=== PATIENT | male | born 1965 | race Caucasian/White ===

== ENCOUNTER 2020-05-09 07:58 | Outpatient (REF) | payer MEDICAID, SELFPAY ==
--- NOTE | 2020-05-09 11:29 | MHC.AU.P13 ---
Adult Audiological Evaluation Date of Visit: 05/09/20 Petroleum Engineering Professor Used: Declined by Patient Reason for Appointment: Audiologic evaluation due to decreased hearing ability, right ear greater than left Does patient feel they have a hearing loss?: Yes If Yes, Which Ear?: Right Ear When Was Hearing Difficulty First Noticed?: 2008 following Cerebral Aneurysm Has hearing been tested previously?: No Hearing Handicap Inventory HHIE SCORE: 16 Based on HHIE score, patient has: Mild to moderate perceived hearing handicap Ear History: Family History of Hearing Loss?: Yes History of Ear Wax Buildup: Left Ear History of occupational noise exposure?: No History: History: No Medical History: Medical History: Headache High Blood Pressure Tobacco Use Vascular Problems Medical History: 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 Also diagnosed with hyperlipidemia and Hemianopsia related to the Aneurysm Otoscopy: Right Ear: Unremarkable Left Ear: Cerumen around canal wall only Tympanometry: Right Ear: Negative Middle Ear Pressure (Type C) Left Ear: Normal Middle Ear System (Type A) Otoacoustic Emissions Right Ear Results: Not performed at today's visit. Left Ear Results: Not performed at today's visit. Hearing Evaluation: Transducer(s) Used: Insert Earphones Bone Conduction Method: Conventional Audiometry Stimuli Used: Pure Tones Right Ear: Description of Hearing: Mild dropping to moderately-severe mixed hearing loss. Conductive components may be related to the significant negative middle ear pressure. Left Ear: Description of Hearing: Normal hearing thresholds at 250-3000 Hz dropping to a moderately-severe high frequency sensorineural hearing loss. Speech Recognition Threshold (SRT): Method Used: Monitored Live Voice Stimuli Used: Spondee Words Right Ear: 25 dB HL Left Ear: 20 dB HL Word Discrimination: Method: Recorded Lists Word Lists Used: NU-6 Right Ear: 84% at 65 dB HL Left Ear: 88% at 60 dB HL Comparison: Compared to the most recent evaluation: N/A Recommendations: Recommendations: Audiological re-evaluation in one year. Trial with amplification is recommended. Medical clearance from a physician is required before fitting. A Hearing Aid Fitting has been scheduled. Recommendations (Other): 1) Advised medical consultation with ENT regarding the significant negative middle ear pressure for the right ear; HOWEVER, CHRISTOPHER DOES NOT WANT TO SEE THE SPECIALIST. Advise discussing with Primary Care Provider trying a nasal spray and/or decongestant to address possible Eustachian Tube Dysfunction. 2) Medical clearance faxed to Supervising Physician for use of binaural hearing aids. 3) A Hearing Aid Fitting appointment has been scheduled for 06/06/2020. Diagnosis: Primary Diagnosis: H90.3 Bilateral Sensorineural Hearing Loss Services Performed: Services Performed: Comprehensive Audiological Evaluation (CPT 04116) Tympanometry (CPT 99986) Signature: Provider: Seb Corley, CCC-A
--- NOTE | 2020-05-09 11:38 | MHC.AU.P13 ---
Hearing Aid Evaluation- Binaural Date of Visit: 05/09/20 Business Analyst Intern Used: Declined by Patient Description of Hearing: Right ear - Mild dropping to moderately-severe mixed loss Left ear - Normal thresholds 250-3000, dropping to moderately-severe high frequency sensorineural hearing loss Summary: Due to decreased hearing difficulty and reduced vision, binaural rechargeable hearing aids are recommended as part of the remediation process Hearing Instrument Selection: Right Ear: Receiving Inspector: Bioaxial Model: Event Farmeo M 70-R Battery Size: Rechargeable Color: [place] P3 Manager Spanish: 2 medium Type of Dome: Vented Left Ear: Receiving Inspector: Phonak Model: Phonak M 70-R Battery Size: Rechargeable Color: [place] P3 Manager Spanish: 2 medium Type of Dome: Open Recommendations: Recommendations: Hearing Aid Fitting scheduled for 06/06/2020 Medical clearance faxed to Supervising Physician Diagnosis Code(s): Primary Diagnosis: H90.3 Bilateral Sensorineural Hearing Loss Services Performed: Hearing Aid Evaluation Signature: Provider: Seb Corley, MICHAEL-A
== END 2020-05-09 07:59 | disposition home or self-care (01) ==
LOC: HO.SH 07:58
PROVIDERS: PCP Nurse Practitioner Primary Care; Referring Provider Nurse Practitioner Primary Care; Visit Provider Nurse Practitioner Primary Care
DX: Z46.1 Encounter for fitting and adjustment of hearing aid (principal); H90.3 Sensorineural hearing loss, bilateral
CPT/HCPCS: 92557; 92567; 92591

== ENCOUNTER 2020-06-06 09:36 | Outpatient (REF) | payer MEDICAID, SELFPAY | END 2020-06-06 09:37 | disposition home or self-care (01) | LOC: HO.HAP 09:36 | PROVIDERS: Visit Provider Nurse Practitioner Primary Care | DX: Z46.1 Encounter for fitting and adjustment of hearing aid (principal); H90.3 Sensorineural hearing loss, bilateral | CPT/HCPCS: 92595; V5011; V5020; V5160; V5261 ==

== ENCOUNTER 2020-06-20 11:41 | Outpatient (REF) | payer MEDICAID, SELFPAY | END 2020-06-20 11:42 | disposition home or self-care (01) | LOC: HO.HAP 11:41 | PROVIDERS: Visit Provider Nurse Practitioner Primary Care | DX: Z13.89 Encounter for screening for other disorder (principal) ==

== ENCOUNTER 2021-06-20 12:43 | Emergency (ER) | payer MEDICAID, SELFPAY ==
[2021-06-20 13:22] VITALS: BP 150/83; PULSE 100; RESP 18; TEMP 36.6; O2SAT 98; BMI 27.1
--- NOTE | 2021-06-20 16:06 | ED.WOUNDLAC ---
HPI - Wound/Laceration General Chief Complaint: Wound/Laceration <LAUREN Ramsey Last Filed: 06/20/21 16:34> Stated Complaint: ?abscess <LAUREN Ramsey Last Filed: 06/20/21 16:34> Time Seen by Provider: 06/20/21 16:05 <LAUREN Ramsey Last Filed: 06/20/21 16:34> Source: patient <LAUREN Ramsey Last Filed: 06/20/21 16:34> Mode of arrival: ambulatory <LAUREN Ramsey Last Filed: 06/20/21 16:34> Limitations: no limitations <LAUREN Ramsey Last Filed: 06/20/21 16:34> History of Present Illness HPI narrative: 55 year old male presents to the emergency department with concerns of an abscess to his left thigh started about 3 weeks ago has gotten larger. Patient reports slight discomfort at the site. However he denies fevers, chills, nausea, vomiting, abdominal pain, chest pain, shortness of breath. <LAUREN Ramsey Last Filed: 06/20/21 16:34> Onset (ago): week(s) (3) <LAUREN Ramsey Last Filed: 06/20/21 16:34> Location: other (thigh ) <LAUREN Ramsey Last Filed: 06/20/21 16:34> Patient tetanus UTD: Yes <LAUREN Ramsey Last Filed: 06/20/21 16:34> Associated symptoms: pain (discomfort ) <LAUREN Ramsey Last Filed: 06/20/21 16:34> Related Data Home Medications: Previous Rx's Medication Instructions Recorded doxycycline hyclate 100 mg capsule 100 mg PO BID 10 Days #20 cap 06/20/21 <LAUREN Ramsey Last Filed: 06/20/21 16:34> Allergies/Adverse Reactions: Allergies Allergy/AdvReac Type Severity Reaction Status Date / Time No Known Allergies Allergy Unverified 02/11/20 18:27 <LAUREN Ramsey Last Filed: 06/20/21 16:34> Review of Systems Review of Systems: Constitutional : No Fever, No Chills, Cardiovascular : No Chest Pain, No SOB Respiratory : No Dyspnea Gastrointestinal : No abdominal pain Musculoskeletal : No Joint Swelling Skin : No rash, No skin laceration + abscess Neuro : No Weakness, No Numbness Psych : No SI/HI <LAUREN Ramsey - Last Filed: 06/20/21 16:34> Yes all other systems are reviewed and are negative <LAUREN Ramsey - Last Filed: 06/20/21 16:34> [facility] Past Medical History Attestation statement: The following information was validated with the patient. <LAUREN Ramsey - Last Filed: 06/20/21 16:34> Source: old records reviewed and nursing notes reviewed <LAUREN Ramsey - Last Filed: 06/20/21 16:34> Social History Social History: Social History Advance Directives: No Advance Directives Information Provided: Yes <LAUREN Ramsey - Last Filed: 06/20/21 16:34> Physical Exam Vital Signs: Vital Signs: Last Vital Signs Temp 98 F 06/20/21 13:22 Pulse 100 06/20/21 13:22 Resp 18 06/20/21 13:22 BP 150/83 H 06/20/21 13:22 Pulse Ox 98 06/20/21 13:22 BMI result Body Mass Index 27.1 VSS <LAUREN Ramsey - Last Filed: 06/20/21 16:34> Vital Signs: Last Vital Signs Temp 98 F 06/20/21 13:22 Pulse 100 06/20/21 13:22 Resp 18 06/20/21 13:22 BP 150/83 H 06/20/21 13:22 Pulse Ox 98 06/20/21 13:22 BMI result Body Mass Index 27.1 <Darrin Cali MD - Last Filed: 06/20/21 16:55> Appearance: Alert.? Oriented X3.? No acute distress.? Head: Normocephalic, atraumatic, no step-offs or deformities Eyes: Pupils equal, round and reactive to light.? ENT: Pharynx normal.? Neck: Normal inspection.? Neck supple.? CVS: Normal heart rate and rhythm.? Pulses normal.? Respiratory: No respiratory distress.? Breath sounds normal.? Abdomen: Soft and nontender.? Skin: Skin warm and dry.? Normal skin color.? Normal skin turgor.?+ abscess to left posterior thigh with overlying errythema and calor. Extremities: No lower extremity edema.? No calf ttp. 5/5 strength to bilateral upper and lower extremities Neuro: Oriented X 3.? No motor deficit.? No sensory deficit. <LAUREN Ramsey - Last Filed: 06/20/21 16:34> Course Reevaluation(s) Reevaluation #1: An incision and drainage was successfully done at the bedside. Patient tolerated procedure well. No complications. Patient will be discharged on doxycycline p.o. b.i.d. times 10 days. He has been advised to return to the emergency department with any signs of infection or new or worsening symptoms. Comfortable discharge home with PCP follow-up. <LAUREN Ramsey - Last Filed: 06/20/21 16:34> Time: 16:16 <LAUREN Ramsey - Last Filed: 06/20/21 16:34> MDM - Wound/Laceration MDM Narrative Medical decision making narrative: 1615 55 yo m presents to ED w/ an abscess to left posterior thigh X3 weeks worsening. Denies fevers/chills. PE abscess to posterior thigh Plan - I&D @ bedside. <LAUREN Ramsey Last Filed: 06/20/21 16:34> Medical Records Attestation: I reviewed the patient's medical records. <LAUREN Ramsey - Last Filed: 06/20/21 16:34> Lab Data Attestation: I reviewed the patient's lab results. <LAUREN Ramsey Last Filed: 06/20/21 16:34> Procedures Abscess I/D Site: other (L. posterior thigh ) <LAUREN Ramsey Last Filed: 06/20/21 16:34> Side (if applicable): left <LAUREN Ramsey Last Filed: 06/20/21 16:34> Local Anesthetic: lidocaine 2% <LAUREN Ramsey - Last Filed: 06/20/21 16:34> Amount of anesthesia used (mL): 5 <LAUREN Ramsey Last Filed: 06/20/21 16:34> Technique: incised with blade <LAUREN Ramsey Last Filed: 06/20/21 16:34> Amount of fluid expressed (mL): 5 <LAUREN Ramsey - Last Filed: 06/20/21 16:34> Sent for culture/gram staining?: No <LAUREN Ramsey Last Filed: 06/20/21 16:34> Irrigation: Yes <LAUREN Ramsey - Last Filed: 06/20/21 16:34> Packing used?: none <LAUREN Ramsey Last Filed: 06/20/21 16:34> Critical Care Time Critical Care Time Critical Care Time: No <LAUREN Ramsey Last Filed: 06/20/21 16:34> Discharge Plan Discharge Clinical Impression: Abscess <LAUREN Ramsey Last Filed: 06/20/21 16:34> Patient Disposition: Home, Self-Care <LAUREN Ramsey Last Filed: 06/20/21 16:34> Instructions: Abscess (ED), Abscess Follow-up (ED), Abscess Incision and Drainage (DC) <LAUREN Ramsey Last Filed: 06/20/21 16:34> Additional Instructions: Take your medications as prescribed. If you were prescribed antibiotics today, it is important that you take your medication to their entirety, do not skip any doses, do not finish them early. Follow-up with your primary care provider this week. Return to the emergency department with new or worsening symptoms. In case of emergency call 911 <LAUREN Ramsey Last Filed: 06/20/21 16:34> Prescriptions: New doxycycline hyclate 100 mg capsule 100 mg PO BID 10 Days Qty: 20 RF: 0 <LAUREN Ramsey Last Filed: 06/20/21 16:34> Referrals: Jacquelin Alvarez, RETRIEVAL SPECIALIST [Primary Care Provider] - 2 days <LAUREN Ramsey - Last Filed: 06/20/21 16:34> Stand Alone Forms: Work/School Release <LAUREN Ramsey - Last Filed: 06/20/21 16:34>
[2021-06-20] MEDS: Lidocaine HCl 2 % MPF 5 ML VIAL SUBCUT ×2 (16:56→16:57)
== END 2021-06-20 16:58 | disposition home or self-care (01) ==
PROVIDERS: Emergency Provider Emergency Medicine; PCP Nurse Practitioner Primary Care
DX: L02.416 Cutaneous abscess of left lower limb (principal); M79.605 Pain in left leg
CPT/HCPCS: 10060; 99283; 99284

== ENCOUNTER 2021-09-17 19:20 | Emergency (ER) | payer MEDICAID, SELFPAY ==
--- NOTE | 2021-09-17 | ECG_ITS ---
Test Reason : CHEST PAIN Blood Pressure : / mmHG Vent. Rate : 050 BPM Atrial Rate : 050 BPM P-R Int : 174 ms QRS Dur : 092 ms QT Int : 434 ms P-R-T Axes : 013 -09 139 degrees QTc Int : 395 ms Sinus bradycardia Low voltage QRS Incomplete right bundle branch block ST & T wave abnormality, consider lateral ischemia Abnormal ECG When compared to the previous EKG of 23 august 2016, lateral T inversion noted Referred By: Generic ED Physician Electronically Signed By:PEDRO PABLO PETERS
[2021-09-17 19:48] VITALS: BP 169/72; PULSE 58; RESP 16; TEMP 36.3; O2SAT 100; BMI 26.2
[2021-09-17] MEDS: Ondansetron ODT 4 MG TAB.RAPDIS TRANSLINGU (20:06)
[2021-09-17] MEDS: Ibuprofen 600 MG TABLET PO (20:10)
[2021-09-17 20:26] LABS: MANUAL DIFF FLAG NO
[2021-09-17 20:33] LABS: Basophils Absolute Auto 0.1 X10*3/uL (0.0-0.2); Basophils Percent Auto 0.6 % (0-2); Eosinophils Absolute Auto 0.2 X10*3/uL (0.0-0.4); Eosinophils Percent Auto 1.4 % (0-4); Hematocrit 47.4 % (42.0-52.0); Hemoglobin 15.2 g/dl (14.0-18.0); Imm Gran Abs Auto 0.05 X10*3/uL (0.00-0.03); Imm Gran Pct Auto 0.4 % (0.0-0.4); Lymphocytes Absolute Auto 3.1 X10*3/uL (1.2-4.9); Lymphocytes Percent Auto 21.6 % (20-40); Mean Corpuscular HGB Conc 32.1 g/dl (31.0-36.0); Mean Corpuscular Hemoglobin 27.5 pg (27.0-33.0); Mean Corpuscular Volume 85.7 fL (80.0-98.0); Mean Platelet Volume 10.2 fL (9.4-12.4); Monocytes Absolute Auto 0.7 X10*3/uL (0.1-1.2); Monocytes Percent Auto 5.2 % (2-11); Neutrophils Percent Auto 70.8 % (45-73); Platelet Count 279 X10*3/uL (160-400); Red Blood Count 5.53 X10*6/uL (4.60-5.80); Red Cell Distribution Width 13.5 % (11.0-16.0); White Blood Count 14.2 X10*3/uL (4.8-10.8)
[2021-09-17 20:50] LABS: COVID-19 Test Negative (Negative); IDNOW Serial# 16C4AD1C; Influenza A Negative (Negative); Influenza B2 Negative (Negative)
[2021-09-17 20:52] LABS: Alanine Aminotransferase 18 U/L (0-40); Albumin Level 4.5 g/dL (3.5-5.0); Alkaline Phosphatase 76 U/L (39-117); Anion Gap 12 (12-20); Aspartate Amino Transferase 19 U/L (5-37); Bilirubin Total 0.3 mg/dL (0.0-1.0); Blood Urea Nitrogen 14 mg/dL (9-16); Calcium 9.8 mg/dL (8.4-10.2); Carbon Dioxide 27 mmol/L (22-29); Chloride 104 mmol/L (96-108); Creatinine Clr Calc Pharmacy 65.4; Estimated Glomerular Filt Rate 59; Glucose Random 122 mg/dL (60-115); Potassium 4.4 mmol/L (3.3-5.1); Sodium 139 mmol/L (135-145); Total Protein 7.7 g/dL (6.5-8.0)
[2021-09-17 20:58] LABS: Troponin-I High Sensitivity < 3.5 ng/L (<3.5-35.0)
[2021-09-17 21:45] LABS: Appearance Urine CLEAR; Color Urine YELLOW; Glucose Urine UA NEG (NEG); Leukocyte Esterase Urine NEG (NEG); Nitrite Urine NEG (NEG); Specific Gravity - Urine >= 1.030 (1.005-1.025); UACC Culture Trigger NO; Urine Blood 3+ (NEG); Urine Ketones NEG (NEG); Urine Protein TRACE MG/DL (NEG-TRACE)
[2021-09-17 21:55] LABS: Mucus Urine 2+ /LPF; RBC Urine 30-49 /HPF (0); Squamous Epithelial Cell Urine 1+ /LPF
[2021-09-17 21:57] LABS: Bacteria Urine 1+ /LPF
== END 2021-09-17 23:28 | disposition left against medical advice (07) ==
PROVIDERS: Emergency Provider Emergency Medicine
DX: R61 Generalized hyperhidrosis (principal); R07.89 Other chest pain; Z20.822 Contact with and (suspected) exposure to COVID-19; Z79.899 Other long term (current) drug therapy
CPT/HCPCS: 36415; 80053; 81001; 84484; 85025; 87502; 87635; 93005; 99283

== ENCOUNTER 2023-10-16 08:30 | Outpatient (REF) | payer MEDICAID, SELFPAY ==
[2023-10-16 11:23] LABS: Hematocrit 49.3 % (42.0-52.0)
[2023-10-16 11:30] LABS: Estimated Average Glucose 123 mg/dL; Hemoglobin A1c % 5.9 % (<6.0)
[2023-10-16 11:52] LABS: Cholesterol 148 mg/dL (<200); HDL Cholesterol 37 mg/dL (>40); LDL Cholesterol Calculated 78 mg/dL (<100); Triglycerides 169 mg/dL (<150)
== END 2023-10-16 08:31 | disposition home or self-care (01) ==
LOC: HO.HHCL 08:30
PROVIDERS: Visit Provider Nurse Practitioner Primary Care
DX: R73.03 Prediabetes (principal); G47.33 Obstructive sleep apnea (adult) (pediatric); E78.5 Hyperlipidemia, unspecified
CPT/HCPCS: 36415; 80061; 83036; 85014; 85018

== ENCOUNTER 2024-02-24 09:06 | Outpatient (REF) | payer MEDICAID, SELFPAY ==
--- NOTE | ~2024-02-24 | XR_ITS ---
EXAMINATION: XR SHOULDER, LEFT CLINICAL INFORMATION: atraumatic shoulder pain COMPARISON: None available. TECHNIQUE: AP external rotation, Grashey, scapular Y, and axillary views of the left shoulder. FINDINGS: Normal bony mineralization. No fracture, dislocation, or suspicious bone lesion. Early arthritic changes in the glenohumeral joint and AC joint. There is minimal undersurface spurring of the AC joint. Slightly downsloping lateral acromion without spurring. Subacromial space is preserved. Remainder of the bony and soft tissue structures appear normal. XR/XR shoulder LT min 2V IMPRESSION: 1. No acute findings left shoulder. 2. Early arthritic changes in the glenohumeral and AC joint. Electronically signed by: Melvin Rico MD 05/03/2024 03:00 PM [facility]
== END 2024-02-24 09:07 | disposition home or self-care (01) ==
LOC: HO.XRAY 09:06
PROVIDERS: PCP Nurse Practitioner Primary Care; Visit Provider Nurse Practitioner Primary Care
DX: M25.512 Pain in left shoulder (principal)
CPT/HCPCS: 73030

== ENCOUNTER → 2024-02-24 09:11 | Outpatient (BNV) | payer MEDICAID, SELFPAY | PROVIDERS: PCP Nurse Practitioner Primary Care; Visit Provider Radiology Diagnostic Radiology | DX: M25.512 Pain in left shoulder (principal) | CPT/HCPCS: 73030 ==

== ENCOUNTER 2024-08-19 09:01 | Outpatient (REF) | payer MEDICAID, SELFPAY ==
[2024-08-19 11:31] LABS: Cholesterol 150 mg/dL (<200); HDL Cholesterol 39 mg/dL (>40); LDL Cholesterol Calculated 74 mg/dL (<100); Triglycerides 185 mg/dL (<150)
[2024-08-19 12:16] LABS: HBS Num1 > 1000.00 mIU/mL (0-7.99); HBc Num1 9.77 S/CO (0.00-0.79); HBsAGNum1 0.37 S/CO (0.00-0.99); Hepatitis B Surface Antigen Negative (Negative); ~HepC Num1 0.24 S/CO (0.00-0.79); ~Hepatitis B Surface Antibody REACTIVE (Nonreactive); ~Hepatitis C Antibody Nonreactive (Nonreactive)
[2024-08-19 13:23] LABS: HBc Num2 9.94 S/CO; HBc Num3 9.73 S/CO; Hepatitis B Core Antibody Reactive (Nonreactive)
[2024-08-22 09:48] LABS: TS Negative Control Passed; TS Panel A 0; TS Panel B 0; TS Positive Control Passed; TSpotTB Negative (Negative)
== END 2024-08-19 09:02 | disposition home or self-care (01) ==
LOC: HO.HHCL 09:01
PROVIDERS: Visit Provider Nurse Practitioner Primary Care
DX: Z00.00 Encounter for general adult medical examination without abnormal findings (principal); E78.2 Mixed hyperlipidemia
CPT/HCPCS: 36415; 80061; 86481; 86704; 86706; 86803; 87340

== ENCOUNTER 2024-09-18 09:19 | Outpatient (AMB) | payer MEDICAID, SELFPAY ==
--- NOTE | 2024-09-18 07:51 | MHC.OFFVIS ---
Intake Visit Reasons: LDCT Allergies No Known Allergies Allergy (Unverified 02/11/20 18:27) HPI HPI LDCT: Details: Initial visit for this 59yo smoker with a 30PYH. Patient started smoking at age 14 for 44 years at 1/2-1ppd. . Denies marijuana use. Denies second hand smoke exposure. Denies exposure to chemicals or substances like asbestos. . Denies known family history of lung cancer. Denies personal history of cancers. Denies chest CT in last year. . Denies recent travel outside the [place]. Denies recent respiratory illness or recent hospitalization for respiratory issues. Denies testing positive for COVID. Admits receiving COVID Vaccine. . Denies fever, chills, new/worsening cough, hemoptysis, hoarseness or dysphagia. Denies significant chest pain, significant dyspnea or unintentional weight loss. Patient Lung Cancer Screening Questionnaire reviewed with patient by provider. . Shared Decision Making Completed. Patient meets criteria. Discussed in detail with patient, the risk vs benefit of LDCT screening. Patient consents to proceed with scan. Discussed smoking cessation. [facility] Medical History (Updated 09/01/24 @ 15:13 by Kathy Hardin PA-C) GERD (gastroesophageal reflux disease) Hyperlipidemia Intracranial aneurysm Nicotine dependence, cigarettes, uncomplicated Surgical History (Updated 09/01/24 @ 15:13 by Kathy Hardin PA-C) History of cystoscopy History of colonoscopy History of craniotomy Social History (Updated 09/18/24 @ 09:35 by Kathy Hardin PA-C) Patient Tobacco Use Status: Current everyday Tobacco user Cigarettes Per Day: 10 Years Smoked: (onset 14yo, 1/2-1ppd x 44yrs, 30pyh) Assessment & Plan Assessment & Plan (1) Nicotine dependence, cigarettes, uncomplicated: Comment: (onset 14yo, 1/2-1ppd x 44yrs, 30pyh) Code(s): F17.210 - Nicotine dependence, cigarettes, uncomplicated Category: Medical Plan: - SDM visit completed today in office. - Patient meets criteria for LDCT for lung cancer screening purposes and is asymptomatic. - Smoking cessation counseling offered. Patients can always call [phone]. - Will arrange for a LDCT scan of the chest for screening purposes at [facility]. - Risks, benefits, and alternatives were discussed in detail and the patient agrees to proceed. - Risks discussed include but are not limited to: radiation exposure, anxiety during testing and while awaiting results, false negatives, false positives and possibility of additional intervention such as further imaging or surgical procedures for benign disease. - Benefits are obviously detection of lung cancer at an early stage which can lead to improved outcomes. - Discussed the importance of screening program compliance with adherence to yearly LDCT scan as scheduled - or sooner interval scans for personalized screening regimen. - Discussed follow up plan. Our office will send a letter discussing results and if needed set up phone call and office visit based on CT findings. - Patient educated on results categorization and the management decisions for suspicious findings potentially found on the screening LDCT scan. Any patient with a Lung RADS score of 3 or 4 will be reviewed by a multidisciplinary team at [facility] to form a plan of action in regards to scan findings. - If further work up is warranted for a suspicious lung finding this will be followed by the Lung Cancer Screening program in conjunction with the Thoracic Surgery Department at [facility]. - A copy of the office note and LDCT will be sent to the patient's PCP - as well as documentation on any associated further plans of care. - Incidental findings on LDCT are the PCP's responsibility. These findings are indicated with an S finding on the LDCT Assessment. A note discussing the findings will be sent to the PCP who is then responsible for further management. - All questions answered.? Coding Level of Care Code Lung Cancer Screening G0296 Diagnoses Nicotine dependence, cigarettes, uncomplicated F17.210
--- OUTSIDE RECORDS SUMMARY | 2024-09-18 09:30 | XMS_ITS | Clinical Summary ---
Author Organization [address] Address [address] [place] [id number] Care Team Providers Care Line Repairer Tower Name Role Phone Brian Cameron NP Primary Care Provider [phone] Allergies No known active allergies Medications acetaminophen-co deine (TYLENOL #3) 300-30 mg per tablet TAKE 1 TABLET BY MOUTH TWICE DAILY NEEDED FOR SEVERE HEADACHE 0 Active ALPRAZolam (XANAX) 0.25 mg tablet TAKE 1 TABLET BY MOUTH TWICE DAILY IN THE MORNING AND AT BEDTIME NEEDED 0 Active ALPRAZolam (XANAX) 1 mg tablet TAKE 1 TABLET BY MOUTH AT BEDTIME 0 Active amitriptyline (ELAVIL) 50 mg tablet TAKE 1 TABLET BY MOUTH AT BEDTIME 0 Active cholecalciferol, vitamin D3, 1,000 unit tablet TAKE 1 TABLET BY MOUTH EVERY MORNING 0 Active NARCAN 4 mg/actuation nasal spray FOR SUSPECTED OPIOID OVERDOSE. SPRAY 0.1mL IN ONE NOSTRIL. REPEAT IN ALTERNATE NOSTRIL 2-3 MINUTES IF NEEDED. SEEK MEDICAL ATTENTION IMMEDIA 9 Active nicotine (NICODERM CQ) 21 mg transdermal patch APPLY 1 PATCH TOPICALLY TO THE SKIN DAILY IN THE MORNING THEN REMOVE AT BEDTIME DIRECTED. DO NOT SMOKE WHILE USING PATCH 0 Active NICOTROL 10 mg inhaler INHALE 1 CARTRIDGE SIX TIMES DAILY NEEDED DIRECTED 0 Active perphenazine (TRILAFON) 2 mg tablet TAKE 1 TABLET BY MOUTH TWICE DAILY IN THE MORNING AND AT BEDTIME 0 Active simvastatin (ZOCOR) 20 mg tablet TAKE 1 TABLET BY MOUTH AT BEDTIME 0 Active venlafaxine (EFFEXOR XR) 150 mg XR 24 hr extended release capsule TAKE 1 CAPSULE BY MOUTH EVERY MORNING 0 Active venlafaxine (EFFEXOR XR) 37.5 mg XR 24 hr extended release capsule TAKE 1 CAPSULE BY MOUTH EVERY EVENING 0 Active zolpidem (AMBIEN) 10 mg tablet TAKE 1 TABLET BY MOUTH AT BEDTIME NEEDED 0 Active Active Problems Problem Noted Date Diagnosed Date Cerebral aneurysm, nonruptured 05/12/2018 Subarachnoid hemorrhage due to ruptured aneurysm 05/27/2007 Overview (10/26/2019): in [place], ruptured 9mm right Pcom aneurysm s/p clipping, unruptured 5mm Acom aneurysm s/p clipping, unruptured untreated 2.5mm left Pcom aneurysm Cerebral aneurysm Overview (10/26/2019): ruptured 9mm right Pcom aneurysm s/p clipping ([place] 2007) & unruptured 5mm Acom aneurysm s/p clipping ([place] 2007), unruptured untreated 2.5mm left Pcom aneurysm Family History Medical History Relation Name Comments Aneurysm Brother Subarachnoid hemorrhage Brother Aneurysm Paternal Uncle Subarachnoid hemorrhage Paternal Uncle Relation Name Status Comments Brother Paternal Uncle Social History Tobacco Use Types Packs/Day Years Used Date Smoking Tobacco: Every Day Smokeless Tobacco: Current Sex and Gender Information Value Date Recorded Sex Assigned at Not on file Legal Sex Male 9:57 AM EST Gender Identity Not on file Sexual Orientation Not on file Last Filed Vital Signs Vital Sign Reading Time Taken Comments Blood Pressure 114/68 10/26/2019 8:32 AM EDT Pulse - - Temperature - - Respiratory Rate - - Oxygen Saturation - - Inhaled Oxygen Concentration - - Weight 83.5 kg (184 lb) 10/26/2019 8:32 AM EDT Height - - Body Mass Index - - Plan of Treatment Health Maintenance Due Date Last Done Comments HIV screening 1978 Hepatitis C screening 09/13/1983 Tetanus adult (Td q 10,TDAP once) 1985 Lipid disorder screening 2005 Colon cancer screening, Colonoscopy 2010 Diabetes screening 2010 Pneumococcal Vaccine (50+ ye ars) (1 of 1 - PCV) 09/13/2015 Shingles vaccine (Shingrix) (1 of 2 - Shingrix (RZV) 2 Dose Standard Series) 09/13/2015 Covid-19 vaccine series (1 - 2023-25 season) 2024 Influenza vaccine 01/25/2025 RSV Immunization (1 - 1-dose 75+ series) 2040 Meningococcal Vaccine Aged Out No franny ela eligible based on patient's age to complete this topic Pneumococcal Vaccine (2 - 49 years) Aged Out No longer eligible based on patient's age to complete this topic Insurance [id number] MEDICAID [id number] MEDICAID [id number] MEDICAID Care Teams Line Repairer Tower Relationship Specialty Start Date End Date Brian Cameron NP [address] [place] [address] JOELLE Bragg [phone] PCP - General 07/30/19
--- OUTSIDE RECORDS SUMMARY | 2024-09-18 09:30 | XMS_ITS | Encounter Summary ---
Author Organization [facility] Address [address] [place] [address] [address] [place] [address] Care Team Providers Care Refueling Ramp Supervisor Name Role Phone Jacquelin Alvarez Primary Care Provider [phone] Reason for Visit * Reason Comments Med Refill Encounter Details Date Type Department Care Team (Late Contact Info) Description 08/30/2022 Refill [facility] MEDICINE [address] [place] [id number] Alyssa Ellis MD [address] [place] [phone] Pain Social History Tobacco Use Types Packs/Day Years Used Date Smoking Tobacco: Every Day Cigarettes 1 35 Sex and Gender Information Value Date Recorded Sex Assigned at Male 03/26/2022 10:22 AM EDT Legal Sex Male 10:22 AM EDT Gender Identity Male 03/26/2022 10:22 AM EDT Sexual Orientation Straight 03/26/2022 10 :22 AM EDT documented as of this encounter Plan of Treatment Upcoming Encounters Date Type Department Care Team (Late Contact Info) Description 10/12/2024 11:00 AM EDT Office Visit [facility] ADULT DENTAL [address] [place] [address] Clarissa Estevez [address] [place] [address] 10/20/2024 9:45 AM EDT Office Visit [facility] MEDICINE [address] [place] [phone] Jacquelin Alvarez ANP [address] [place] [address] 12/07/2024 9:30 AM EDT Telemedicine [facility] MED & PEDS [address] [place] [address] Zarina Orellana, DESIREE [address] [place] [address] documented as of this encounter Visit Diagnoses Diagnosis Pain Generalized pain documented in this encounter Care Teams Refueling Ramp Supervisor Relationship Specialty Start Date End Date Jacquelin Alvarez ANP [address] [place] [phone] PCP - General Family Medicine 01/25/20 documented as of this encounter
--- OUTSIDE RECORDS SUMMARY | 2024-09-18 09:30 | XMS_ITS | Encounter Summary ---
Author Organization [facility] [email or web address] [facility] Address [address] [place] [phone] Care Team Providers Care Senior Controls Analyst Name Role Phone Brian Cameron CORSAGE MAKER Primary Care Provider Encounter Details Date Type Department Care Team ([facility] Contact Info) Description 06/19/2021 Scanned Document [facility] [address] [facility] [address] [facility] [place] [address] Provider, Historical . Social History Tobacco Use Types Packs/Day Years Used Date Smoking Tobacco: Every Day Smokeless Tobacco: Current Sex and Gender Information Value Date Recorded Sex Assigned at Not on file Legal Sex Male 9:57 AM EST Gender Identity Not on file Sexual Orientation Not on file documented as of this encounter Plan of Treatment Not on file documented as of this encounter Visit Diagnoses Not on filedocumented in this encounter Care Teams Senior Controls Analyst Relationship Specialty Start Date End Date Brian Cameron NP [address] [place] [address] [address] [place] [phone] PCP - General 07/30/19 documented as of this encounter
--- OUTSIDE RECORDS SUMMARY | 2024-09-18 09:30 | XMS_ITS | Encounter Summary ---
Author Organization [employer] Address [address] [facility] [address] [place] [address] Care Team Providers Care Cutter Tender Name Role Phone Alvarez Jacquelin MARTÍNEZ Primary Care Provider [phone] Encounter Details Date Type Department Care Team (Late Contact Info) Description 11/13/2022 Orders Only [facility] [address] [place], [place] [phone] Tika Hidalgo LPN Social History Tobacco Use Types Packs/Day Years Used Date Smoking Tobacco: Every Day Cigarettes 1 35 Smokeless Tobacco: Never Depression Answer Date Recorded Patient Health Questionnaire-2 Score 0 10/02/2022 Sex and Gender Information Value Date Recorded Sex Assigned at Male 03/26/2022 10:22 AM EDT Legal Sex Male 10:22 AM EDT Gender Identity Male 03/26/2022 10:22 AM EDT Sexual Orientation Straight 03/26/2022 10 :22 AM EDT COVID-19 Exposure Response Date Recorded In the last 10 days, have yo u been in contact with someone who was confirmed or suspected to have Coronavirus/COVID-19? No / Unsure 10/29/2022 8:52 AM EDT documented as of this encounter Plan of Treatment Upcoming Encounters Date Type Department Care Team (Late st Contact Info) Description 10/12/2024 11:00 AM EDT Office Visit [facility] ADULT DENTAL [address] [place], [place] [phone] Zenaida Clarissa [address] [place] [address] 10/20/2024 9:45 AM EDT Office Visit [facility] MEDICINE [address] [place], [place] [phone] Jacquelin Alvarez ANP [address] [place] [address] 12/07/2024 9:30 AM EDT Telemedicine [facility] [address] [place] [address] Zarina Orellana, RN [address] [place] [address] documented as of this encounter Visit Diagnoses Not on filedocumented in this encounter Care Teams Cutter Tender Relationship Specialty Start Date End Date Jacquelin Alvarez ANP [address] [place] [address] PCP - General Family Medicine 01/25/20 documented as of this encounter
--- OUTSIDE RECORDS SUMMARY | 2024-09-18 09:30 | XMS_ITS | Encounter Summary ---
Author Organization [facility] [employer] [facility] Address [address] [place] [address] Care Team Providers Care Sales Promotion Coordinator Name Role Phone Brian Cameron NP Primary Care Provider [phone] Encounter Details Date Type Department Care Team (Late st Contact Info) Description 07/02/2019 Scanned Document [facility] [place] [address] [facility] [address] [place] [phone] Se Reeder MD [address] [place] [phone] Social History Tobacco Use Types Packs/Day Years Used Date Smoking Tobacco: Never Assessed Sex and Gender Information Value Date Recorded Sex Assigned at Not on file Legal Sex Male 9:57 AM EST Gender Identity Not on file Sexual Orientation Not on file documented as of this encounter Plan of Treatment Not on file documented as of this encounter Procedures Procedure Name Priority Date/Time Associated Diagnosis Comments CT RESULT SCAN Routine 06/10/2019 documented in this encounter Results * CT Result Scan (06/10/2019) us Historical Provider IMG SCAN REPORTS Final Resul t documented in this encounter Visit Diagnoses Not on filedocumented in this encounter Care Teams Sales Promotion Coordinator Relationship Specialty Start Date End Date Brian Cameron NP [address] [facility] [address] [place] [address] PCP - General 07/30/19 documented as of this encounter
--- OUTSIDE RECORDS SUMMARY | 2024-09-18 09:30 | XMS_ITS | Clinical Summary ---
Author Organization [employer] Address [address] [facility] 7[address] [place] [address] Care Team Providers Care Cannon Pinion Adjuster Name Role Phone Jacquelin Alvarez Primary Care Provider [phone] Allergies No known active allergies Medications ALPRAZolam (Xanax) 0.25 MG tablet Take 0.25 mg by mouth if needed in the morning and at bedtime. 08/30/19 23 Active omeprazole (PriLOSEC) [address] capsule TAKE 1 CAPSULE BY MOUTH EVERY MORNING BEFORE A MEAL 90 capsule 3 11/25/19 24 Active brimonidine (AlphaGAN P) 0.1 % ophthalmic solutionIndicatio ns:Ocular hypertension, bilateral Administer 1 drop into both eyes 2 times daily. 15 mL 3 03/26/20 24 2024 Active Sodium Fluoride (PreviDent 5000 Booster Plus) 1.1 % paste Apply 1 Application. to teeth 2 times daily. 112 g 3 04/10/20 24 Active simvastatin (Zocor) 20 MG tablet TAKE 1 TABLET BY MOUTH AT BEDTIME 90 tablet 1 04/29/20 24 Active cholecalciferol (Vitamin D-3) 25 MCG tablet TAKE 1 TABLET BY MOUTH EVERY MORNING 90 tablet 1 06/23/19 25 Active amitriptyline (Elavil) 75 MG tabletIndications :Chronic nonintractable headache, unspecified headache type TAKE 1 TABLET BY MOUTH AT BEDTIME 90 tablet 1 07/29/19 25 Active oxyCODONE-acetami nophen (Percocet) 5-325 MG tabletIndications :Pain TAKE 1 TABLET BY MOUTH EVERY TWELVE HOURS NEEDED FOR SEVERE PAIN. DO NOT START BEFORE AUGUST 03, 2024. 56 tablet 09/02/19 25 Active oxyCODONE-acetami nophen (Percocet) 5-325 MG tabletIndications :Pain Take 1 tablet by mouth every 12 (twelve) hours if needed for severe pain. Do not start before August 03, 2024. 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 07/25 Aneurysm of artery 04/10/2024 Gastroesophageal reflux disease 04/10/2024 History of cerebral aneurysm repair 04/10/2024 Recurrent major depressive disorder 04/10/2024 Missing teeth, acquired 04/09/2024 Ischemic optic neuropathy of right eye Ill-fitting dentures 01/22/2024 Follow-up exam 10/07/2023 Dental caries into pulp 06/11/2023 Sleep apnea 06/18/2021 Cerebral aneurysm, nonruptured 05/12/2018 Overview (04/10/2024): ruptured 9mm right Pcom aneurysm s/p clipping ([place] 2007) & unruptured 5mm Acom aneurysm s/p clipping ([place] 2007), unruptured untreated 2.5mm left Pcom aneurysm Dyslipidemia 02/24/2015 Vitamin D deficiency 02/24/2015 Mixed anxiety and depressive disorder 02/24/2015 Hyperlipidemia 03/16/2013 Insomnia 03/16/2013 Headache 05/23/2012 Tobacco dependence syndrome 05/09/2012 Subarachnoid hemorrhage due to ruptured aneurysm 05/27/2007 Overview (04/10/2024): in [place], ruptured 9mm right Pcom aneurysm s/p clipping, unruptured 5mm Acom aneurysm s/p clipping, unruptured untreated 2.5mm left Pcom aneurysm Resolved Problems Problem Noted Date Diagnosed Date Resolved Date Hemianopia 05/23/2012 03/30/2024 Encounters Date Type Department Care Team Description 09/07/2024 Telephone [facility] [address] [place] [address] Jacquelin Alvarez ANP 09/04/2024 9:30 AM EDT Clinical Support [facility] [address] [place] [address] Zarina Orellana, RN Other chronic pain (Primary Dx); 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 09/04/2024 Travel 09/01/2024 Refill [facility] [address] [place] [address] Jacquelin Alvarez ANP Pain 08/28/2024 Travel 08/19/2024 Telephone [facility] [address] [place] [address] Jacquelin Alvarez ANP 08/12/2024 3:15 PM EDT Office Visit [facility] [address] [place] [address] Jacquelin Alvarez ANP Dyslipidemia (Primary Dx); Tobacco dependence syndrome; long-term (current) use of opiate analgesic; Screening for malignant neoplasm of colon; Screening for colon cancer; Healthcare maintenance 08/12/2024 Travel 08/07/2024 Population Health Risk Score [facility] () [address] [phone] Provider, Population Health Generic 07/31/2024 Refill [facility] MED & PEDS [address] [place] [address] Zarina Orellana RN Pain 07/31/2024 Telephone [facility] MED & PEDS [address] [place] [address] Jacquelin Alvarez ANP Med Refill 07/27/2024 Refill [facility] [address] [place] [address] Jacquelin Alvarez ANP Chronic nonintractable headache, unspecified headache type 07/20/2024 10:30 AM EST Telemedicine [facility] [address] [place] [address] Zarina Orellana RN Other chronic pain 07/20/2024 Travel 07/20/2024 Telephone [facility] MED & PEDS [address] [place] [address] Zarina Orellana RN 07/19/2024 Travel 07/16/2024 Telephone [facility] [address] [place] [address] Elizabeth Dukes [place] may recall 07/02/2024 Refill [facility] [address] [place] [address] Jacquelin Alvarez ANP Pain 06/23/2024 Refill [facility] [address] [place] [address] Jacquelin Alvarez ANP from Last 3 Months Immunizations Name Administration Dates Next Due Influenza injectable quadriv alent IIV4 with preservative 04/15/2017,05/03/2016,02/24/2015 Influenza injectable quadriv alent preservative free 04/05/2023,03/23/2022,03/17/2021,02/24,04/01/2019 Influenza, IIV3, injectable 04/29/2014 Influenza, Split (incl. chino fied surface antigen) 03/16/2013 Influenza, seasonal, injecta ble, preservative free 02/20/2024 Pfizer Covid-19 Vaccine 12+ 08/12/2024 Pneumococcal Conjugate PCV 20 10/18/2023 Pneumococcal Polysaccharide PPSV23 03/16/2013 TD (adult), 2 Lf tetanus tox oid, preservative free, adsorbed 04/05/2023 Tdap 03/16/2013 Zoster, Recombinant 12/21/2019,07/30/2019 Social History Tobacco Use Types Packs/Day Years Used Date Smoking Tobacco: Every Day Cigarettes 1 35 Passive Smoke Exposure: Current Smokeless Tobacco: Never Tobacco Cessation:Ready to Q uit: Not Asked; Counseling Given: Not Answered Alcohol Use Standard Drinks/Week Comments Not Currently 0 (1 standard drink = 0.6 oz pur e alcohol) Housing Stability Answer Date Recorded What is your housing situation today? I have reynaldo yang 10/09/[address] you li ve. Do you have problems with any of the following? None of the above 10/09/2023 Food Insecurity Answer Date Recorded Within the past 12 months, y ou worried that your food would run out before you got money to buy more: Never True 10/09/2023 Within the past 12 months,th e food you bought just didn't last and you didn't have enough money to get more: Never True Transportation Answer Date Recorded In the past 12 months, has l ack of transportation kept you from medical appts, meetings, work or from getting things needed for daily living? No 10/09/2023 Utilities Answer Date Recorded In the past 12 months, has t he electric, gas, oil or water company threatened to shut off services in your home? No 10/09/2023 Depression Answer Date Recorded Patient Health Questionnaire-2 Score 3 02/20/2024 Internet Access Answer Date Recorded Internet Access Q1 Yes 02/13/2024 Internet Access Q2 Not on file 02/13/2024 Sex and Gender Information Value Date Recorded Sex Assigned at Male 03/26/2022 10:22 AM EDT Legal Sex Male 10:22 AM EDT Gender Identity Male 03/26/2022 10:22 AM EDT Sexual Orientation Straight 03/26/2022 10 :22 AM EDT Last Filed Vital Signs Vital Sign Reading Time Taken Comments Blood Pressure 127/87 08/12/2024 3:24 PM EDT Pulse 85 08/12/2024 3:24 PM EDT Temperature 36.6 ??C (97.9 ??F) 08/12/2024 3:24 PM ED T Respiratory Rate 20 08/12/2024 3:24 PM EDT Oxygen Saturation 96% 08/12/2024 3:24 PM EDT Inhaled Oxygen Concentration - - Weight 79.7 kg (175 lb 9.6 oz) 08/12/2024 3:24 P M EDT Height 177.8 cm (5' 10 ) 08/12/2024 3:24 PM EDT Body Mass Index 25.2 08/12/2024 3:24 PM EDT Plan of Treatment Upcoming Encounters Date Type Department Care Team (Late st Contact Info) Description 10/12/2024 11:00 AM EDT Office Visit [facility] ADULT DENTAL [address] [place] [address] Clarissa Estevez [address] [place] [address] 10/20/2024 9:45 AM EDT Office Visit [facility] MED[facility] [address] [place] [address] Jacquelin Alvarez ANP [address] [place] [address] 12/07/2024 9:30 AM EDT Telemedicine [facility] [address] [place] [address] Zarina Orellana, DESIREE [address] [place] [address] Health Maintenance Due Date Last Done Comments CT Colonography 1965 FIT DNA/Cologuard 1965 FIT 1965 FOBT 1965 HIV Screening 1965 Sigmoidoscopy 1965 Alcohol/Substance Use Screening 1977 Lung Cancer Screening 09/13/2015 Colonoscopy 09/07/2021 09/07/2016 Colorectal Cancer Screening 09/07/2021 Dental Oral Exam 09/05/2024 03/06/2024, , 04/17/2017, Additional history exists Dental Prophylaxis 10/08/2024 04/09/2024, 0 07/27/2013, 01/21/2013 SDOH Screening 10/08/2024 10/09/2023 Diabetes: Hemoglobin A1C 10/15/2024 10/16/2023, 07/26 Depression Screening 02/19/2025 02/20/2024, 02/20/20 Dental X-Ray: Bitewings 03/07/2025 03/06/20 24, 01/20/2019, 04/17/2017 Tobacco Screening 08/12/2025 08/12/2024 Dental X-Ray: Full Mouth 03/07/2027 024, 06/11/2023, 04/17/2017 Lipid Panel 08/19/2029 08/19/2024, 09/25, 08/21/2021 DTaP/Tdap/Td Vaccines (3 - Td or Tdap) 04/05/2033 04/05/2023, 03/16/2013 RSV Patients and Patients Aged 60 years or older (1 - 1-dose 75+ series) 2040 Zoster Vaccines Completed 12/21/2019, 07/30/2019 Pneumococcal Vaccine: 50+ Years Completed 10/18/2023, 03/16/2013 Influenza Vaccine Completed 02/20/2024, , 03/23/2022, Additional history exists COVID-19 Vaccine Completed 08/12/2024, , 10/05/2020 Hepatitis C Screening Completed 08/19/2024 HIB Vaccines Aged Out No longer eligi ble based on patient's age to complete this topic HPV Vaccines Aged Out No longer eligi ble based on patient's age to complete this topic Hepatitis A Vaccines Aged Out No long er eligible based on patient's age to complete this topic Hepatitis B Vaccines Discontinued IPV Vaccines Aged Out No longer eligi ble based on patient's age to complete this topic Meningococcal Vaccine Aged Out No franny ela eligible based on patient's age to complete this topic RSV under 20 months Aged Out No longe r eligible based on patient's age to complete this topic Rotavirus Vaccines Aged Out No longer eligible based on patient's age to complete this topic Procedures Procedure Name Priority Date/Time Associated Diagnosis Comments POCT ROCIO-14 URINE DRUG SCREEN Routine 09/04/2024 9:39 AM EDT Other chronic pain long-term (current) use of opiate analgesic LAB COLOGUARD?? COLON CANCER SCREEN- Unsuccessful Attempt Routine 09/01/2024 10:53 PM EDT Screening for colon cancer HEPATITIS B SURFACE ANTIBODY, QUALITATIVE Routine 08/19/2024 9:13 AM EDT Healthcare maintenance HEPATITIS B SURFACE ANTIGEN, EIA Routine 08/19/2024 9:13 AM EDT Healthcare maintenance HEPATITIS B CORE AB TOTAL Routine 08/19/2024 9:13 AM EDT Healthcare maintenance HEPATITIS C AB W/REFL TO HCV RNA, QN, PCR Routine 08/19/2024 9:13 AM EDT Healthcare maintenance T-SPOT(R).TB Routine 08/19/2024 9:03 AM EDT Healthcare maintenance LIPID PANEL, STANDARD Routine 08/19/2024 9:03 AM EDT Mixed hyperlipidemia PROPHYLAXIS - ADULT Routine 04/09/2024 1 0:00 AM EST INTRAORAL - COMPLETE SERIES OF RADIOGRAPHIC IMAGES Routine 03/06/2024 10:30 AM EDT PERIODIC ORAL EVALUATION - ESTABLISHED PATIENT Routine 03/06/2024 10:30 AM EDT HEMOGLOBIN A1C Routine 10/16/2023 8:20 AM EDT Prediabetes COLONOSCOPY Routine 09/07/2016 from Last 3 Months or Most Recently Relevant to Health Maintenance Results * POCT ROCIO-14 Urine Drug Screen (09/04/2024 9:39 AM EDT) THC Positive Benzodiazepines Screen, Urine Positive TCA, Urine Positive Oxycodone Screen, Urine Positive Urine Urine specimen obtained by clean catch procedure / Unknown 09/04/2024 9:39 AM EDT Narrative Zarina Orellana RN - 09/04/2024 9:39 AM EDT .UTOX cup Lot#[id number] Exp. 01/13/26 Internal Pass Control us Jacquelin MARTÍNEZ POINT OF CARE TEST ENTER/EDIT OR DERABLES Final Result * Cologuard?? colon cancer screening (09/01/2024 10:53 PM EDT) - Unsuccessful Attempt Cologuard Result Sample Could Not Be Processed 10 N/A 09/01/2024 10:53 PM EDT [facility] (CLIA #:[id number]) Comment:The specimen receive d by the laboratory was not acceptable for testing. The patient will be contacted to initiate a new sample collection. Stool specimen (specimen) 09/01/2024 11:03 AM EDT us Jacquelin Alvarez [facility] MOLECULAR DIAGNOSTICS ORDERA BLES Final Result [facility] (CLIA #:[id number]) [address] [place], [place] [phone], * Hepatitis C Antibody with Reflex to HCV, RNA, Quantitative, Real-Time PCR (08/19/2024 9:13 AM EDT) Pathologist [facility] Hepatitis C Antibody Nonreactive Nonreactive [facility] Comment:Antibodies to HCV no t detected; does not exclude early acuteHCV infection. Blood Venous blood specimen / Unknown 08/19/2024 9:13 AM EDT 08/19/2024 11:06 AM EDT Jacquelin Alvarez [facility] BLOOD ORDERABLES Final Resul t Performing Organization Address [facility] Co de Phone Number [facility] [address] [place] [phone] * Hepatitis B surface antigen, EIA (08/19/2024 9:13 AM EDT) Hepatitis B Surface Ag Negative Negative [facility] Blood Venous blood specimen / Unknown 08/19/2024 9:13 AM EDT 08/19/2024 11:06 AM EDT Jacquelin Alvarez [facility] BLOOD ORDERABLES Final Resul t Performing Organization Address [facility] de Phone Number [facility] [address] [place] [phone] * Hepatitis B Core Antibody, Total (08/19/2024 9:13 AM EDT) Hepatitis B Core Antibody Reactive Nonreactive [facility] Comment:Presumptive evidence of anti-HBc. Blood Venous blood specimen / Unknown 08/19/2024 9:13 AM EDT 08/19/2024 11:06 AM EDT Jacquelin Alvarez [facility] BLOOD ORDERABLES Final Resul t Performing Organization Address [facility] de Phone Number [facility] [address] [place] [phone] * Hepatitis B Surface Antibody, Qualitative (08/19/2024 9:13 AM EDT) ~Hepatitis B Surface Antibody REACTIVE Nonreactive [facility] Comment:REACTIVE: > 11.99 mI U/mL Blood Venous blood specimen / Unknown 08/19/2024 9:13 AM EDT 08/19/2024 11:06 AM EDT Jacquelin Alvarez ANP LAB BLOOD ORDERABLES Final Resul t [facility] [address] [place] [phone] [phone] * T-SPOT??.TB (08/19/2024 9:03 AM EDT) [facility] Signature T Spot TB Negative Negative [facility] Comment:A negative test resu lt does not exclude the possibilityof exposure to or infection with Mycobacteriumtuberculosis (M. tuberculosis). Patients with recentexposure to TB infected individuals exhibiting anegative T-SPOT.TB result should be considered forretesting within 6 weeks or if other relevant clinicalsymptoms indicate. Results from T-SPOT.TB testing mustbe used in conjunction with each individual'sepidemiological history, current medical status,and results of other diagnostic evaluations.The T-SPOT.TB test is qualitative and results arereported as positive, borderline, or negative, giventhat the test controls perform as expected. In linewith the Centers for Disease Control and Prevention's2010 recommendation to report quantitative measurementsalongside the qualitative result, the laboratoryprovides spot counts for informational purposes only.The T-SPOT.TB test should not be interpreted as aquantitative test. TS PANEL A 0 [facility] TS PANEL B 0 [facility] Negative Control Passed [facility] Positive Control Passed [facility] Comment:For additional infor natalie, please refer tohttp://education.Atritech/faq/TIW324(This link is being provided for informational/educational purposes only.)REPORT COMMENT:RECD IN CHANTILLYTHIS TEST WAS PERFORMED AT:[employer] [id number] [place] [id number] VALENTINO MD,PHD 08/19/2024 9:03 AM EDT 08/19/2024 11:06 AM EDT Jacquelin Alvarez ANP LAB BLOOD ORDERABLES Final Resul t Performing Organization Address [facility] de Phone Number [facility] [address] [place] [phone] [phone] * (ABNORMAL) Lipid Panel, Standard (08/19/2024 9:03 AM EDT) Triglycerides 185(H) <150 mg/dL [facility] Comment:Desirable Triglyceri de: less than 150 mg/dLBorderline High Triglyceride 150-199 mg/dLHigh Triglyceride: 200-499 mg/dLVery High Triglyceride: greater than or equal to 5OO mg/dL Cholesterol 150 <200 mg/dL [facility] Comment:Desirable Cholestero l: less than 200 mg/dLBorderline High Cholesterol: 200-239 mg/dLHigh Cholesterol: greater than 239 mg/dL LDL Cholesterol Calculated 74 <100 mg/dL [facility] Comment:Desirable LDL: less than 100 mg/dLNear Optimal/Above Optimal LDL: 110- 129 mg/dLBorderline High LDL: 130-159 mg/dLHigh LDL: 160-189 mg/dLVery High LDL: greater than or equal to 190 mg/dL HDL Cholesterol 39(L) >40 mg/dL [facility] Comment:Desirable HDL: great er than 40 mg/dL Note: This HDL assay may give artificially low results in patients with liver disease. Blood Venous blood specimen / Unknown 08/19/2024 9:03 AM EDT 08/19/2024 11:06 AM EDT Jacquelin Alvarez [facility] BLOOD ORDERABLES Final Resul t Performing Organization Address [facility] Co de Phone Number [facility] [address] [place] [address] [phone] * Hemoglobin A1c (10/16/2023 8:20 AM EDT) Hemoglobin A1c 5.9 <6.0 % [facility] Comment:Hemoglobin A1C Refer ence Range Adults: 4.8 - 6.0 % Non diabetic: < 6.0 % Goal: < 7.0 %Additional Action Suggested: > 8.0 %Note: Hemoglobin A1c results are invalid for patients with abnormal amounts of HbF. Blood transfusions may impact the HbA1c concentration in the patient sample. Estimated Average Glucose 123 mg/dL [facility] Comment:eAG = Estimated ave rage glucose which is %A1C expressed asaverage glucose, using the formula of the Q4E-YrjqsosDpzidlc Glucose study (ADAG), Diabetes Care, Vol.31,#8,Dec. 2007 Blood Venous blood specimen / Unknown 10/16/2023 8:20 AM EDT 10/16/2023 11:04 AM EDT [facility] LAB BLOOD ORDERABLES Final Resul t [facility] [address] [place] [phone] * Colonoscopy (09/07/2016) Colonoscopy Normal Normal Historical Provider MD HEALTH MAINTENANCE Final Result from Last 3 Months or Most Recently Relevant to Health Maintenance Insurance [id number] ADULT Care Teams Cannon Pinion Adjuster Relationship Specialty Start Date End Date Jacquelin Alvarez ANP [address] [place] [phone] PCP - General Family Medicine 01/25/20
--- OUTSIDE RECORDS SUMMARY | 2024-09-18 09:30 | XMS_ITS | Encounter Summary ---
Author Organization [employer] [facility] Address [address] [place] [address] [address] [place] [address] Care Team Providers Care Switchman Supervisor Name Role Phone Jacquelin Alvarez Primary Care Provider [phone] Reason for Visit * Reason Comments Med Refill Encounter Details Date Type Department Care Team (Late Contact Info) Description 08/30/2022 Refill [facility] [address] [place] [phone] Alyssa Ellis MD [address] [place] [phone] Pain Social History Tobacco Use Types Packs/Day [...] Description 10/12/2024 11:00 AM EDT Office Visit [facility] [address] [place] [address] Clarissa Estevez [address] [place] [address] 10/20/2024 9:45 AM EDT Office Visit [facility] [address] [place] [phone] Jacquelin Alvarez ANP [address] [place] [address] 12/07/2024 9:30 AM EDT Telemedicine [facility] [address] [place] [address] Zarina Orellana, DESIREE [address] [place] [address] documented as of this encounter Visit Diagnoses Diagnosis Pain Generalized pain documented in this encounter Care Teams Switchman Supervisor Relationship Specialty Start Date End Date Jacquelin Alvarez ANP [address] [place] [phone] PCP - General Family Medicine 01/25/20 documented as of this encounter
--- OUTSIDE RECORDS SUMMARY | 2024-09-18 09:31 | XMS_ITS | Encounter Summary ---
Author Organization [employer] Address [address] [facility] [address] [place] [address] Care Team Providers Care Calcine Furnace Loader Name Role Phone Jacquelin Alvarez Primary Care Provider [phone] Encounter Details Date Type Department Care Team (Late Contact Info) Description 12/24/2022 Orders Only [facility] MED & PEDS [address] [place] [address] Tika Hidalgo LPN Social History Tobacco Use [...] Description 10/12/2024 11:00 AM EDT Office Visit [facility] ADULT DENTAL [address] [place] [id number] Zenaida, Clarissa [address] [place] [address] 10/20/2024 9:45 AM EDT Office Visit [facility] MEDICINE [address] [place] [address] Jacquelin Alvarez ANP [address] [place] [address] 12/07/2024 9:30 AM EDT Telemedicine [facility] [address] [place] [address] Zarina Orellana, RN [address] [place] [address] documented as of this encounter Visit Diagnoses Not on filedocumented in this encounter Care Teams Calcine Furnace Loader Relationship Specialty Start Date End Date Jacquelin Alvarez ANP [address] [place] [id number] PCP - General Family Medicine 01/25/20 documented as of this encounter
--- OUTSIDE RECORDS SUMMARY | 2024-09-18 09:31 | XMS_ITS | Encounter Summary ---
Author Organization [employer] Address [address] [facility] 7[address] [place] [address] Care Team Providers Care Metal Door Assembler Name Role Phone Jacquelin Alvarez Primary Care Provider [phone] Reason for Visit * Reason Onset Date Comments FYI 12/17/2022 Encounter Details Date Type Department Care Team ([facility] Contact Info) Description 12/17/2022 Telephone [facility] MEDICINE [address] [place], [place] [phone] Jacquelin Alvarez ANP [address] [place] [address] FYI Social History Tobacco Use Types Packs/Day Years [...] AM EDT documented as of this encounter Miscellaneous Notes * Telephone Encounter - Jesika Figueroa LPN - 12/21/2022 12:59 PM EDT Bhavna checking to see if we received paperwork on patient faxed 12/10/22. Checked with MR for PHI and nothing was put in the chart so nothing was received and informed her to fax me the entire package to my attention. Pending documents needed for [facility] * Telephone Encounter - Ruiz Cha Melani - 12/17/2022 11:19 AM EDT Andrés from [place] with [facility] Dr. Jerez Office informing that pt had a consultation scheduled for todaybut called and advised that he would not being doing colonoscopy today and Facility had to cancel appt. If any questions please contact T[facility]ha with [facility] at [phone] documented in this encounter Plan of Treatment Upcoming Encounters Date Type Department Care Team (Late st Contact Info) Description 10/12/2024 11:00 AM EDT Office Visit [facility] ADULT DENTAL [address] [place] [address] Zenaida Clarissa [address] [place] [address] 10/20/2024 9:45 AM EDT Office Visit [facility] MEDICINE [address] [place] [address] Jacquelin Alvarez ANP [address] [place] [address] 12/07/2024 9:30 AM EDT Telemedicine [facility] MED & PEDS [address] [place] [address] Zarina Orellana, RN [address] [place] [address] documented as of this encounter Visit Diagnoses Not on filedocumented in this encounter Care Teams Metal Door Assembler Relationship Specialty Start Date End Date Jacquelin Alvarez ANP [address] [place] [address] PCP - General Family Medicine 01/25/20 documented as of this encounter
--- OUTSIDE RECORDS SUMMARY | 2024-09-18 09:31 | XMS_ITS | Encounter Summary ---
Author Organization [email or web address] Address [address] [facility] [address] [place] [address] Care Team Providers Care Collection Team Lead Name Role Phone Jacquelin Alvarez Primary Care Provider [phone] Encounter Details Date Type Department Care Team (Late Contact Info) Description 01/15/2023 Orders Only [facility] MED & PEDS [address] [place] [address] Tika Hidalgo LPN Social History Tobacco Use [...] Description 10/12/2024 11:00 AM EDT Office Visit [facility] ADULT DENTAL [address] [place] [id number] Zenaida, Clarissa [address] [place] [address] 10/20/2024 9:45 AM EDT Office Visit [facility] MEDICINE [address] [place] [address] Jacquelin Alvarez ANP [address] [place] [address] 12/07/2024 9:30 AM EDT Telemedicine [facility] MED & PEDS [address] [place] [address] Zarina Orellana, RN [address] [place] [address] documented as of this encounter Visit Diagnoses Not on filedocumented in this encounter Care Teams Collection Team Lead Relationship Specialty Start Date End Date Jacquelin Alvarez ANP [address] [place] [id number] PCP - General Family Medicine 01/25/20 documented as of this encounter
== END 2024-09-18 09:44 | disposition home or self-care (01) ==
LOC: HO.HPS 09:19
PROVIDERS: PCP Nurse Practitioner Primary Care; Referring Provider Nurse Practitioner Primary Care; Visit Provider Physician Assistant Medical
DX: F17.210 Nicotine dependence, cigarettes, uncomplicated (principal)
CPT/HCPCS: G0296

== ENCOUNTER 2024-09-18 09:36 | Outpatient (REF) | payer MEDICAID, SELFPAY ==
--- NOTE | ~2024-09-18 | CT_ITS ---
CLINICAL HISTORY: F17.210 - Nicotine dependence, cigarettes, uncomplicated CT lung cancer screening (LDCT) Comparison: None Technique: Axial CT images of the chest using low-dose technique. Referring provider counseled the patient on shared decision-making for LDCT screening. Additional counseling was provided on smoking cessation. Effective radiation dose total: DLP 41.2 mGycm, CTDIvol 1.3 mGy. Findings: Pulmonary nodules: None Incidental pulmonary findings: Minimal centrilobular emphysema suggested at the apices. Minimal airway thickening noted. Non pulmonary findings: Coronary artery calcifications: None Limited upper abdomen: Unremarkable Other: None Impression: LungRADS 1: Negative exam. Continue annual screening with low dose Chest CT in 12 months. ##L1## Category 1: Normal; continue annual screening Category 2: Benign appearance or behavior, continue annual screening Category 3: Probably benign, [address] recommended Category 4A: Suspicious, [address] recommended; may consider PET/CT Category 4B: Suspicious, Additional diagnostics and/or tissue sampling recommended Category 4X: Suspicious, Additional diagnostics and/or tissue sampling recommended Category 0: Recalls (incomplete screen due to Incomplete coverage, Noise, Respiratory motion, Expiration, Obscured by acute abnormality) This document has been electronically signed by: Xander Sawant MD on 09/18/2024 16:59:10
== END 2024-09-18 09:37 | disposition home or self-care (01) ==
LOC: HO.CT 09:36
PROVIDERS: PCP Nurse Practitioner Primary Care; Visit Provider Physician Assistant Medical
DX: Z12.2 Encounter for screening for malignant neoplasm of respiratory organs (principal); F17.210 Nicotine dependence, cigarettes, uncomplicated
CPT/HCPCS: 71271; G0296

== ENCOUNTER → 2024-09-18 09:41 | Outpatient (BNV) | payer MEDICAID, SELFPAY | PROVIDERS: PCP Nurse Practitioner Primary Care; Visit Provider Radiology Vascular & Interventional Radiology | DX: F17.210 Nicotine dependence, cigarettes, uncomplicated (principal) | CPT/HCPCS: 71271 ==